=== PATIENT | male | born 1975 | race Caucasian/White ===

== ENCOUNTER 2017-05-22 02:13 | Emergency (ER) | payer SELFPAY ==
[2017-05-22] MEDS ORDERED: AMOXICILLIN 500 MG CAPSULE PO ONE (02:39)
[2017-05-22] MEDS ORDERED: HYDROcodone /APAP 5/325 1 EACH TABLET PO ONE (02:39)
--- NOTE | 2017-05-22 02:50 | ED Physician Documentation ---
Sore Throat/Dental Pain - HISTORIAN Historian: patient - HPI Stated Complaint: dental pain Chief Complaint: General Adult Additional Information: dental pain for 3 days. Took 3 aspirin two hours ago. - ROS CONST: no problems - PAST HX Past History: none Allergies/Adverse Reactions: Allergies Allergy/AdvReac Type Severity Reaction Status Date / Time No Known Allergies Allergy Verified 05/22/17 02:26 Home Medications: Ambulatory Orders Medication Instructions Recorded Amoxicillin [Trimox] 500 mg PO Q8 #30 capsule 05/22/17 Tramadol HCl [Ultram] 50 mg PO Q4 PRN #20 tablet 05/22/17 - SOCIAL HX Smoking History: cigarettes - FAMILY HX Family History: No - VITAL SIGNS Vital Signs: Vital Signs Temp Pulse Resp BP Pulse Ox 98.4 F 82 20 171/119 97 05/22/17 02:13 05/22/17 02:13 05/22/17 02:13 05/22/17 02:13 05/22/17 02:13 - REVIEWED ASSESSMENTS Nursing Assessment Reviewed: Yes Vitals Reviewed: Yes ED Results Lab/Radiology - Orders Orders: ED Orders Category Date Time Status Amoxicillin [Amoxil] Med 05/22/17 02:39 Once 500 mg PO NOW ONE HYDROcodone /APAP 5/325 [[place] 5/325] Med 05/22/17 02:39 Once 2 each PO NOW ONE Dental Pain Physical Exam - EXAM General Appearance: moderate distress Head/Neck: head nml inspection, trachea midline, cervical lymphadenopathy (1+ ant cerv, L>R) Eyes: eyes nml inspection Mouth/Throat: lips nml, pharynx nml, voice nml, no drooling, no air way problems , gum swelling around teeth, widespread dental decay (extremely poor dentition) Ear/Nose: nml inspection Respiratory: no resp. distress, breath sounds nml CVS: reg. rate & rhythm Extremities: nml ROM (gait and stance) Skin: warm/dry, normal color Neuro/Psych: anxiety Discharge Clincal Impression: Pain due to dental caries Prescriptions: Amoxicillin [Trimox] 500 mg PO Q8 #30 capsule Tramadol HCl [Ultram] 50 mg PO Q4 PRN #20 tablet PRN Reason: dental pain Referrals: Ghanshyam Siegel MD [Primary Care Provider] - 2 Days Condition: Fair Disposition: 01 HOME, SELF-CARE Decision to Admit: NO Decision Time: 02:50
[2017-05-22 03:11] VITALS: BP 164/114
== END 2017-05-22 02:55 | disposition home or self-care (01) ==
LOC: ED 02:13
DX: K02.9 Dental caries, unspecified (principal)
CPT/HCPCS: 99283; A9270-GY